=== PATIENT | male | born 2000 | race Caucasian/White ===

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

== ENCOUNTER → 2024-01-08 | Outpatient (CLI) | payer BC ==
--- NOTE | 2024-01-08 18:14 | CT ---
EXAMINATION TYPE: CT wrist LT wo con DATE OF EXAM: 01/08/2024 COMPARISON: 08/02/2014 HISTORY: left wrist fx CT DLP: 112.6 mGycm Automated exposure control for dose reduction was used. Contrast: None Technique: Axial images 2 mm thick sections. Reconstructed images in coronal and sagittal plane. Thre e-D reconstructed images are reviewed performed by the technologist on a separate computer. FINDINGS: Joint spaces appear preserved. No acute fracture or dislocation evident. Scapholunate space appears p reserved. Soft tissues are unremarkable. Muscular density appears normal. IMPRESSION: 1. NO SUSPICIOUS OSSEOUS ABNORMALITY RADIOGRAPHICALLY APPARENT. CONSIDER MRI FOR ADDITIONAL EVALUATIO N. [facility], Workstation: [email or web address], 01/08/2024 6:12 PM
== END | disposition home or self-care (01) ==
LOC: RADCTMAIN 16:05
PROVIDERS: ATTEND Orthopaedic Surgery Hand Surgery
DX: S62.022D Displaced fracture of middle third of navicular [scaphoid] bone of left wrist, subsequent encounter for fracture with routine healing